=== PATIENT | female | born 1955 | race African-American/Black ===

== ENCOUNTER 2016-08-15 20:21 | Inpatient (IN) | payer BC ==
[~2016-08-15] VITALS: Ht 170.2 cm; Wt 112.0 kg
[~2016-08-15 20:21] MED LIST: ADLT ASA LOW81 MG OR; AMOXICILLIN500 MG PO; AUGMENTIN500TAB PO; AZITHROMYCIN250 MG PO; BACTRIM DS1 TAB PO; BAYER LOW81 MG PO; CEPHALEXIN500 MG PO; CIPRO500 MG OR; CLARITIN10 MG PO; CLINDAMYCIN150 MG PO; CLOTRIM/BETA EX; CORICIDI2 OR; FLEXERIL OR; FLEXERIL PO; FLONASE NASAL50 MCG; FLUARIX QUADRIV1 IN2 IM; FLUARIX QUADRIV1 INJ IM; HYCODAN1 ML OR; KEFLEX250 MG OR; KLOR-CON M2020 MEQ OR; KLOR-CON M2020 MEQ PO; LASIX40 MG OR; LASIX40 MG PO; LIPITOR10 M1 PO; LOPRESS HC100 MG/25 OR; LOPRESSOR PO; LYRICA50 MG PO; LYRICA75 MG PO; Levaquin OR; MEDDOSEPAK PO; METOPROL TAR100 MG PO; METOPROLOL TAR100 MG PO; METOPROLOL100 M1 OR; METOPROLOL25 M1; METOPROLOL50 M1 OR; METOPROLOL50 MG OR; MULTI VITAMN OR; NAPROSYN500 MG OR; NAPROXEN375 MG OR; NEXIUM20 M1 PO; NEXIUM40 M1 OR; PREDNISONE10 MG PO; PREDNISONE20 MG OR; PREDNISONE20 MG PO; PROAIR HFA IN; ROBITUSSIN AC10 ML PO; ROBITUSSIN200 MG/10 PO; ULTRAM50 M1 PO; VICODIN ES1 TAB OR; ZPAK PO; ZYRTEC-D ALG PO; [UNRECOGNIZED DRUG - OTHER] TD; [UNRECOGNIZED DRUG - REMARK]
[2016-08-15 20:51] LABS: HEMATOCRIT 40.7 % (37.0-47.0); MEAN CELL VOLUME 85.3 fL CALC (80.0-100.0); MEAN CORPUSCULAR HGB 27.3 pG CALC (26.0-32.0); MEAN CORPUSCULAR HGB CONC 31.9 g/L CALC (32.0-36.0); NEUT# 3.05 thou/uL (2.00-7.15); RED BLOOD COUNT 4.77 mill/uL (4.20-5.60); RED CELL DISTRI WIDTH 14.3 % (11.5-15.5)
[2016-08-15 21:10] LABS: ALBUMIN 4.6 g/dL (3.2-5.0); ALKALINE PHOSPHATASE 140 u/l (38-126); ANION GAP 15 (6-22 (CALC)); BILIRUBIN, TOTAL 0.4 mg/dL (0.0-1.4); BUN 11 mg/dL (7-17); BUN/CREATININE RATIO 14 (12-20 (CALC)); CALCIUM 8.9 mg/dL (8.4-10.2); CARBON DIOXIDE 26 mmol/l (22-30); CHLORIDE 108 mmol/l (95-108); CREATININE 0.8 mg/dL (0.5-1.0); GFR > 60 ML/MIN (>=60 (CALC)); GFR FOR AFR.AMER. > 60 ML/MIN (>=60 (CALC)); GLUCOSE 91 mg/dL (65-105); POTASSIUM 3.7 mmol/l (3.5-5.1); SGOT/AST 36 u/l (14-36); SGPT/ALT 31 u/l (9-52); SODIUM 146 mmol/l (137-146); TOTAL PROTEIN 8.4 g/dL (6.3-8.2)
[2016-08-15 21:19] LABS: MYOGLOBIN 32 ng/mL (0 - 62)
[2016-08-15 23:43] VITALS: BP 140/77
[2016-08-15 23:45] VITALS: BP 140/77
[2016-08-16] VITALS (22 sets, daily range): BP systolic 93–144; BP diastolic 59–83
[2016-08-16 00:20] LABS: URINE BILIRUBIN - DIPSTICK NEGATIVE (NEGATIVE); URINE BLOOD DIPSTICK TRACE-INTACT (NEGATIVE); URINE CLARITY CLEAR; URINE COLOR YELLOW; URINE GLUCOSE - DIPSTICK NEGATIVE (NEGATIVE); URINE KETONE NEGATIVE (NEGATIVE); URINE LEUK ESTERASE NEGATIVE (NEGATIVE); URINE NITRITE - DIPSTICK NEGATIVE (Negative); URINE PROTEIN - DIPSTICK NEGATIVE (NEG-TRACE); URINE SPECIFIC GRAVITY 1.025
[2016-08-16 04:25] LABS: HEMATOCRIT 37.5 % (37.0-47.0); HEMOGLOBIN 11.8 g/dl (12.0-16.0); IMMATURE GRANULOCYTES 0.2 % (0.0-1.0); MEAN CELL VOLUME 86.8 fL CALC (80.0-100.0); MEAN CORPUSCULAR HGB 27.3 pG CALC (26.0-32.0); MEAN CORPUSCULAR HGB CONC 31.5 g/L CALC (32.0-36.0); NEUT# 2.8 thou/uL (2.00-7.15); RED BLOOD COUNT 4.32 mill/uL (4.20-5.60); RED CELL DISTRI WIDTH 14.4 % (11.5-15.5)
[2016-08-16 04:46] LABS: ALBUMIN 3.8 g/dL (3.2-5.0); ALKALINE PHOSPHATASE 132 u/l (38-126); ANION GAP 12 (6-22 (CALC)); BILIRUBIN, TOTAL 0.5 mg/dL (0.0-1.4); BUN 9 mg/dL (7-17); BUN/CREATININE RATIO 15 (12-20 (CALC)); CALCIUM 8.6 mg/dL (8.4-10.2); CALCULATED LDLCHOLESTEROL 122 mg/dL (62-129 (CALC)); CARBON DIOXIDE 27 mmol/l (22-30); CHLORIDE 109 mmol/l (95-108); CREATININE 0.6 mg/dL (0.5-1.0); GFR > 60 ML/MIN (>=60 (CALC)); GFR FOR AFR.AMER. > 60 ML/MIN (>=60 (CALC)); GLUCOSE 87 mg/dL (65-105); HDL CHOLESTEROL 46 mg/dL (>=40); POTASSIUM 3.9 mmol/l (3.5-5.1); SGOT/AST 27 u/l (14-36); SGPT/ALT 31 u/l (9-52); SODIUM 144 mmol/l (137-146); TOTAL CHOLESTEROL 184 mg/dl (0-199); TOTAL PROTEIN 6.8 g/dL (6.3-8.2); TOTAL TRIGLYCERIDES 79 mg/dl (30-149); VLDL CHOLESTROL 16 mg/dl (1-41 (CALC))
[2016-08-16 05:22] LABS: TSH, 3RD GENERATION 2.41 uIU/mL (0.47 - 4.68)
[2016-08-17] VITALS (7 sets, daily range): BP systolic 99–125; BP diastolic 57–81
== END 2016-08-17 10:20 | disposition home or self-care (01) | DRG 311 ==
LOC: ENPENDDIS → ED 20:21 → ED-I 21:27 → ED 22:48 → ICU 22:49
PROVIDERS: ADMIT Internal Medicine Geriatric Medicine; ATTEND Internal Medicine Geriatric Medicine
DX: I24.9 Acute ischemic heart disease, unspecified (principal); K27.9 Peptic ulcer, site unspecified, unspecified as acute or chronic, without hemorrhage or perforation; I10 Essential (primary) hypertension; I25.10 Atherosclerotic heart disease of native coronary artery without angina pectoris; E78.5 Hyperlipidemia, unspecified; M19.90 Unspecified osteoarthritis, unspecified site; F41.9 Anxiety disorder, unspecified; K21.9 Gastro-esophageal reflux disease without esophagitis; Z98.84 Bariatric surgery status

== ENCOUNTER 2016-12-18 11:06 | Emergency (ER) | payer BC ==
[~2016-12-18] VITALS: Ht 170.2 cm; Wt 80.0 kg
[2016-12-18 11:23] VITALS: BP 180/82
== END 2016-12-18 11:45 | disposition home or self-care (01) | DRG 918 ==
LOC: ED 11:06
DX: T63.464A Toxic effect of venom of wasps, undetermined, initial encounter (principal); I11.0 Hypertensive heart disease with heart failure; I50.9 Heart failure, unspecified; E66.9 Obesity, unspecified; M19.90 Unspecified osteoarthritis, unspecified site; Z98.84 Bariatric surgery status

== ENCOUNTER 2017-01-03 11:01 | Day surgery (SDC) | payer BC ==
[~2017-01-03] VITALS: Ht 170.2 cm; Wt 111.1 kg
[~2017-01-03 11:01] MED LIST changes: +PROAIR HFA108 MCG/AC IN
[2017-01-03 15:53] VITALS: BP 127/91
== END 2017-01-03 15:48 | disposition home or self-care (01) | DRG 951 ==
LOC: ENDO 11:01 → ORM 12:15 → ENDO 12:30 → ORM 12:45 → ENDO 13:15
PROVIDERS: ATTEND Internal Medicine Gastroenterology
PROC: 0DBK8ZX Excision of Ascending Colon, Via Natural or Artificial Opening Endoscopic, Diagnostic (ICD-10-PCS; principal; 2017-01-03)
PROC: 0DBL8ZX Excision of Transverse Colon, Via Natural or Artificial Opening Endoscopic, Diagnostic (ICD-10-PCS; 2017-01-03)
PROC: 0DBN8ZX Excision of Sigmoid Colon, Via Natural or Artificial Opening Endoscopic, Diagnostic (ICD-10-PCS; 2017-01-03)
DX: Z12.11 Encounter for screening for malignant neoplasm of colon (principal); I11.0 Hypertensive heart disease with heart failure; I50.9 Heart failure, unspecified; D12.2 Benign neoplasm of ascending colon; D12.5 Benign neoplasm of sigmoid colon; D12.3 Benign neoplasm of transverse colon; K64.4 Residual hemorrhoidal skin tags; K64.8 Other hemorrhoids; K59.04 Chronic idiopathic constipation; R13.10 Dysphagia, unspecified; K21.9 Gastro-esophageal reflux disease without esophagitis; E78.00 Pure hypercholesterolemia, unspecified; J45.909 Unspecified asthma, uncomplicated; Z98.84 Bariatric surgery status; Z79.899 Other long term (current) drug therapy

== ENCOUNTER 2017-02-07 06:56 | Day surgery (SDC) | payer BC ==
[~2017-02-07] VITALS: Ht 170.2 cm; Wt 108.9 kg
[~2017-02-07 06:56] MED LIST changes: +FLONASE AL50 MCG/ACT NAB
[2017-02-07 09:10] VITALS: BP 98/53
== END 2017-02-07 09:37 | disposition home or self-care (01) | DRG 392 ==
LOC: ENDO 06:56 → ORM 11:00 → ENDO 11:45
PROVIDERS: ATTEND Internal Medicine Gastroenterology
PROC: 0DB48ZX Excision of Esophagogastric Junction, Via Natural or Artificial Opening Endoscopic, Diagnostic (ICD-10-PCS; principal; 2017-02-07)
DX: R13.10 Dysphagia, unspecified (principal); K29.50 Unspecified chronic gastritis without bleeding; Q39.8 Other congenital malformations of esophagus; K21.9 Gastro-esophageal reflux disease without esophagitis; I11.0 Hypertensive heart disease with heart failure; I50.9 Heart failure, unspecified; E78.00 Pure hypercholesterolemia, unspecified; K64.4 Residual hemorrhoidal skin tags; K59.00 Constipation, unspecified; J45.909 Unspecified asthma, uncomplicated; Z86.010 Personal history of colon polyps; Z98.84 Bariatric surgery status

== ENCOUNTER 2017-04-28 09:34 | Emergency (ER) | payer BC ==
[~2017-04-28] VITALS: Ht 170.2 cm; Wt 100.0 kg
[2017-04-28 10:35] LABS: INFLUENZA A NONE DETECTED (NONE DETECT); INFLUENZA B NONE DETECTED (NONE DETECT)
[2017-04-28] MEDS ORDERED: AFRIN 12 HOUR0.05 % (10:38)
[2017-04-28] MEDS ORDERED: TESSALON PER100 MG PO (10:38)
[2017-04-28] MEDS ORDERED: ZITHROMAX250 MG PO (10:38)
[2017-04-28 10:44] VITALS: BP 144/78
== END 2017-04-28 10:44 | disposition home or self-care (01) | DRG 153 ==
LOC: ED 09:34
PROVIDERS: Emergency Medicine
DX: J06.9 Acute upper respiratory infection, unspecified (principal); R05 Cough; R09.81 Nasal congestion; R09.89 Other specified symptoms and signs involving the circulatory and respiratory systems

== ENCOUNTER 2018-01-24 17:32 | Emergency (ER) | payer BC ==
[~2018-01-24] VITALS: Ht 170.2 cm; Wt 113.4 kg
[~2018-01-24 17:32] MED LIST changes: +AFRIN 12 HOUR0.05 %; +TESSALON PER100 MG PO; +ZITHROMAX250 MG PO
[2018-01-24] MEDS ORDERED: AMANTADINE100 MG PO (17:44)
[2018-01-24] MEDS ORDERED: AMOXICILLIN500 MG PO (17:45)
[2018-01-24 18:57] LABS: HEMATOCRIT 38.7 % (37.0-47.0); HEMOGLOBIN 12.2 g/dl (12.0-16.0); MEAN CELL VOLUME 87.6 fL CALC (80.0-100.0); MEAN CORPUSCULAR HGB 27.6 pG CALC (26.0-32.0); MEAN CORPUSCULAR HGB CONC 31.5 g/L CALC (32.0-36.0); NEUT# 1.64 thou/uL (2.00-7.15); RED BLOOD COUNT 4.42 mill/uL (4.20-5.60); RED CELL DISTRI WIDTH 14.7 % (11.5-15.5)
[2018-01-24 19:10] LABS: INFLUENZA A NONE DETECTED (NONE DETECT); INFLUENZA B NONE DETECTED (NONE DETECT)
[2018-01-24 19:17] LABS: ALBUMIN 3.7 g/dL (3.2-5.0); ALKALINE PHOSPHATASE 134 u/l (38-126); ANION GAP 12 (6-22 (CALC)); BILIRUBIN, TOTAL 0.2 mg/dL (0.0-1.4); BUN 10 mg/dL (8-23); BUN/CREATININE RATIO 13 (12-20 (CALC)); CARBON DIOXIDE 28 mmol/l (22-30); CHLORIDE 105 mmol/l (95-108); CREATININE 0.8 mg/dL (0.5-1.0); GFR > 60 ML/MIN (>=60 (CALC)); GFR FOR AFR.AMER. > 60 ML/MIN (>=60 (CALC)); SGOT/AST 24 u/l (9-36); SODIUM 141 mmol/l (137-146)
[2018-01-24] MEDS ORDERED: CODEINE/GUAIFEN1 SOL PO (19:22)
[2018-01-24] MEDS ORDERED: PROVENTIL HFA IN (19:22)
[2018-01-24 19:31] VITALS: BP 140/90
== END 2018-01-24 19:40 | disposition home or self-care (01) | DRG 203 ==
LOC: ED 17:32
PROVIDERS: Emergency Medicine
DX: J40 Bronchitis, not specified as acute or chronic (principal); I10 Essential (primary) hypertension; E78.5 Hyperlipidemia, unspecified

== ENCOUNTER 2018-02-09 17:20 | Observation (INO) | payer BC ==
[~2018-02-09] VITALS: Ht 170.2 cm; Wt 109.0 kg
[~2018-02-09 17:20] MED LIST changes: +AMANTADINE100 MG PO; +CODEINE/GUAIFEN1 SOL PO; +PROVENTIL HFA IN
[2018-02-09 17:25] VITALS: BP 171/104
--- NOTE | 2018-02-09 17:45 | NUR ---
PT ARRIVED DIRECT ADMIT FROM DR MORALES OFFICE. REVIEWED PLAN OF CARE TO BE SETTLED IN TO BED AND IV STARTED. PT SL SHORT OF BREATH WITH EXERTION, 02 SATS 98% ON ROOM AIR. PT TOLERATED IV START WELL. TELEVISION ENGINEERING TEACHER AT BEDSIDE TO ASSIST PT. DENIES ANY FURTHER NEEDS AT THIS TIME. CALL LIGHT WITHIN REACH, ORIENTED TO ROOM.
--- NOTE | 2018-02-09 17:50 | NUR ---
DR GUERRA IN TO SAY HI TO PT.
[2018-02-09 18:17] LABS: HEMATOCRIT 39.7 % (37.0-47.0); HEMOGLOBIN 12.8 g/dl (12.0-16.0); IMMATURE GRANULOCYTES 0.2 % (0.0-5.0); MEAN CELL VOLUME 86.5 fL CALC (80.0-100.0); MEAN CORPUSCULAR HGB 27.9 pG CALC (26.0-32.0); MEAN CORPUSCULAR HGB CONC 32.2 g/L CALC (32.0-36.0); NEUT# 4.54 thou/uL (2.00-7.15); RED BLOOD COUNT 4.59 mill/uL (4.20-5.60); RED CELL DISTRI WIDTH 14.6 % (11.5-15.5)
[2018-02-09 18:43] LABS: ANION GAP 12 (6-22 (CALC)); BUN 11 mg/dL (8-23); BUN/CREATININE RATIO 18 (12-20 (CALC)); CARBON DIOXIDE 27 mmol/l (22-30); CHLORIDE 105 mmol/l (95-108); CREATININE 0.6 mg/dL (0.5-1.0); GFR > 60 ML/MIN (>=60 (CALC)); GFR FOR AFR.AMER. > 60 ML/MIN (>=60 (CALC)); POTASSIUM 4.1 mmol/l (3.5-5.1); SODIUM 140 mmol/l (137-146)
--- NOTE | 2018-02-09 19:20 | NUR ---
BEDSIDE REPORT RECEIVED FROM MORGAN ESTEBAN. PT SITTING UP IN BED WITH AT BEDSIDE; ALERT AND ORIENTED. AMBULATED TO BATHROOM WITH SBA; SOB ON EXERTION AND PT REQUESTED BSC. DENIES PAIN CURRENTLY, BUT REPORTS DISCOMFORT IN HER CHEST FROM COUGHING AND ILLNESS. HUMIDIFIED OXYGEN APPLIED AT 2L VIA NC; REPSIRATIONS EVEN AND UNLABORED AT REST. LUNGS ARE CLEAR. PLAN OF CARE DISCUSSED. PT ENCOURAGED TO VERBALIZE CONCERNS. STATES UNDERSTANDING. SAFETY MEASURES IN PLACE. CALL LIGHT WITHIN REACH.
[2018-02-09 19:50] VITALS: BP 145/90
--- NOTE | 2018-02-09 20:30 | NUR ---
ROCEPHIN INFUSING AT THIS TIME; IV FLUIDS MAINTAINING WITHOUT DIFFICULTY; IV SITE TO RIGHT HAND APPEARS HEALTHY; MESH NETTING APPLIED FOR COMFORT. MED REC COMPLETED AND INHALER GIVEN PER SCHEDULE. NO REQUESTS AT THIS TIME.
--- NOTE | 2018-02-09 23:00 | NUR ---
PT BACK FROM XRAY VIA WHEELCHAIR WITH MS STAFF IN STABLE CONDITION. ONLY REQUEST IS FOR APPLE JUICE.
--- NOTE | 2018-02-10 01:11 | NUR ---
PT AWAKE AND WATCHING TV; REMAINS AT BEDSIDE. IV FLUIDS INFUSING WITHOUT DIFFICULTY; IV SITE APPEARS HEALTHY. SOLUMEDROL ADMINSITERED. PT SBA TO BSC. SAFETY MEASURES IN PLACE. CALL LIGHT WITHIN REACH.
[2018-02-10 04:30] VITALS: BP 122/82
--- NOTE | 2018-02-10 04:35 | NUR ---
PT ASLEEP AT THIS TIME WITH NO SIGNS OF DISTRESS. RESPIRATIONS EVEN AND UNLABORED ON OXYGEN. NO ACUTE CHANGES IN CONDITION THROUGHOUT THE NIGHT. SAFETY MEASURES IN PLACE. CALL LIGHT WITHIN REACH.
[2018-02-10 05:11] LABS: HEMATOCRIT 39.2 % (37.0-47.0); HEMOGLOBIN 12.6 g/dl (12.0-16.0); IMMATURE GRANULOCYTES 0.4 % (0.0-5.0); MEAN CELL VOLUME 86.9 fL CALC (80.0-100.0); MEAN CORPUSCULAR HGB 27.9 pG CALC (26.0-32.0); MEAN CORPUSCULAR HGB CONC 32.1 g/L CALC (32.0-36.0); NEUT# 6.55 thou/uL (2.00-7.15); RED BLOOD COUNT 4.51 mill/uL (4.20-5.60); RED CELL DISTRI WIDTH 14.6 % (11.5-15.5)
[2018-02-10 05:39] LABS: ALBUMIN 3.9 g/dL (3.2-5.0); ALKALINE PHOSPHATASE 137 u/l (38-126); ANION GAP 14 (6-22 (CALC)); BILIRUBIN, TOTAL 0.3 mg/dL (0.0-1.4); BUN 9 mg/dL (8-23); BUN/CREATININE RATIO 16 (12-20 (CALC)); CALCULATED LDLCHOLESTEROL 106 mg/dL (62-129 (CALC)); CARBON DIOXIDE 26 mmol/l (22-30); CHLORIDE 105 mmol/l (95-108); CHOLESTEROL HDL RATIO 3.1 (<4.4 (CALC)); CREATININE 0.6 mg/dL (0.5-1.0); GFR > 60 ML/MIN (>=60 (CALC)); GFR FOR AFR.AMER. > 60 ML/MIN (>=60 (CALC)); HDL CHOLESTEROL 56 mg/dL (>=40); POTASSIUM 4.9 mmol/l (3.5-5.1); SGOT/AST 19 u/l (9-36); SODIUM 140 mmol/l (137-146); TOTAL CHOLESTEROL 175 mg/dl (0-199); TOTAL PROTEIN 7.2 g/dL (6.3-8.2); TOTAL TRIGLYCERIDES 66 mg/dl (30-149); VLDL CHOLESTROL 13 mg/dl (1-41 (CALC))
--- NOTE | 2018-02-10 07:57 | NUR ---
DR GUERRA AT BEDSIDE TO DISCUSS POC
[2018-02-10 08:09] VITALS: BP 151/88
--- NOTE | 2018-02-10 08:09 | NUR ---
ASSESSMENT COMPLETED; PT SITTING UP IN BED EATHING BREAKFAST; RESP EVEN AND UNLABORE; SPEECH CLEAR; TELE IN PLACE; IV PATENT; ACTIVE BOWEL SOUNDS; TRACE EDEMA NOTED TO BLE ANKLES; CALL HAZEL IN REACH;
--- NOTE | 2018-02-10 09:36 | NUR ---
904- PT. C/O CHEST PAIN/SORENESS /10 AFTER A COUGHING SPELL; VS OBTAINED AND B/P ELEVATED AT 187/87 AND HR 110; PT. DID JUST GET OOB TO USE THE BSC WELL. 914- NOTIFIED DR. GUERRA OF THE ABOVE NOTE WELL PT. HAVING SCHEDULED LOPRESSOR; NEW ORDERS RECIEVED AT THIS TIME AND TO BE CARRIED OUT. AWAITING PHARMACY TO SCHEDULE CLONIDINE AT THIS TIME FOR ADMINISTRATION. NOTIFIED RT FOR STAT EKG. 935-ADMINISTERED CLONIDINE PER ORDER; WILL REASSESS IN 45 MINUTES PER ORDER; PT. REPORTS PAIN HAS COME DOWN SOME AT THIS TIME. ALSO MEDICATED WITH PRN ATIVAN TO ASSIST PT. TO RELAX; WILL REASSESS. CALL LIGHT IS IN REACH. WILL CONTINUE TO MONITOR.
--- NOTE | 2018-02-10 09:55 | NUR ---
VOICEMAIL LEFT ON CELL FOR DR. GUERRA TO NOTIFY HIM OF EKG BEING SCANNED AT THIS TIME FOR HIM TO EVALUATE.
[2018-02-10 10:07] LABS: URINE BILIRUBIN - DIPSTICK NEGATIVE (NEGATIVE); URINE BLOOD DIPSTICK TRACE-LYSED (NEGATIVE); URINE COLOR YELLOW; URINE GLUCOSE - DIPSTICK 250 mg/dL (NEGATIVE); URINE KETONE NEGATIVE (NEGATIVE); URINE LEUK ESTERASE NEGATIVE (NEGATIVE); URINE NITRITE - DIPSTICK NEGATIVE (Negative); URINE PROTEIN - DIPSTICK NEGATIVE (NEG-TRACE); URINE SPECIFIC GRAVITY <=1.005; URINE UROBILINOGEN - DIPSTICK 0.2 E.U./dL (0.2)
[2018-02-10 10:08] LABS: URINE CLARITY CLEAR
--- NOTE | 2018-02-10 10:25 | NUR ---
SPOKE WITH DR. GUERRA AND NOTIFIED HIM OF EKG BEING SCANNED IN AND THAT PER RT READS ST. ALSO NOTIFIED HIM THAT PT. REPORTS CP HAS EASED OFF SOME BUT STILL IS A 2-3 AND DOES REPORT HX; GERD AND THAT SHE WAS GIVEN PROTONIX WELL. UPDATED ON REASSESSED B/P 120/68 AND OF HR 89; MD [place] WITH ADMINISTRATION OF 0900 LOPRESSOR; WILL MEDICATE PER ORDER. NEW ORDERS RECEIVED AND TO BE CARRIED OUT.
--- NOTE | 2018-02-10 11:15 | NUR ---
PT LAYING IN BED AWAKE, TELE IN PLACE; PT ASKED FOR APPLE JUICE WHICH WAS GIVEN; PT VOICED NO OTHER NEEDS; RESP EVEN AND UNLABOERD; WILL CONTINUE TO MONITOR.
--- NOTE | 2018-02-10 11:19 | NUR ---
NOTIFIED DR. GUERRA OF TROPONIN LEVEL AND TELEMETRY READING. ALSO THAT PT. STILL REPORTS CHEST SORENESS/PAIN REMAINS AT 2-3; NO CHANGE; NEW ORDERS FOR TRAMADOL AND TO CARRY OUT.
--- NOTE | 2018-02-10 11:45 | NUR ---
PT. C/O PAIN 04/19 NOW IT HAS DECREASED AND PT. IS BURPING; MEDICATED WITH ORDERED TRAMADOL; WILL REASSESS. EDUCATED PT. ON TRAMADOL FREQUENCY; VERBALIZES UNDERSTANDING; DENIES FURTHER NEEDS. UPDATED ON POC. CALL LIGHT IS IN REACH.
--- NOTE | 2018-02-10 13:22 | NUR ---
PT. SET UP FOR BATH UP TO CHAIR; BATHED SELF. LINENS CHANGED. PT. DID GET SLIGHTLY SHORT OF BREATH WITH THIS EXERTION. ASSISTED TO GET BACK INTO BED; DENIES FURTHER NEEDS. CALL LIGHT IS IN REACH.
--- NOTE | 2018-02-10 15:36 | NUR ---
PT LAYING IN BED AWAKE AND WATCHING TV; PT INDIPENDENT IN ROOM; NO S/S OF DISTRESS NOTED; BSC REMAINS CLOSE TO BED FOR PT USE;
[2018-02-10 15:52] VITALS: BP 102/59
--- NOTE | 2018-02-10 19:00 | NUR ---
RECEIVED REPORT FROM DAY NURSE. AT BESIDE. NO S/S OF DISTRESS NOTED. CALL HAZEL IN REACH. WILL CONTINUE TO MONITOR.
[2018-02-10 19:32] VITALS: BP 142/63
--- NOTE | 2018-02-11 | NUR ---
PT RESTING IN BED. AT BEDSIDE. IV INFUSING WELL. NO S/S OF DISTRESS. CALL HAZEL IN REACH. WILL CONTINUE TO MONITOR.
[2018-02-11 00:14] VITALS: BP 120/61
--- NOTE | 2018-02-11 02:59 | NUR ---
PT RESTING IN BED. AT BEDSIDE.ASSESSMENT COMPLETED AT THIS TIME(SEE INTERVENTIONS) LUNG SOUNDS CLEAR, HEART SOUNDS NORMAL, BOWEL SOUNDS ACTIVE. TRACE EDEMA NOTED TO LEGS BILATERALLY. #22 IN THE RIGHT HAND INFUSING WELL, NO REDNESS OR EDEMA NOTED. PT VOICING NO COMPLAINTS AT THIS TIME. CALL HAZEL IN REACH. WILL CONTINUE TO MONITOR.
--- NOTE | 2018-02-11 04:00 | NUR ---
PT RESTING IN BED WITH EYES CLOSED. NO S/S OF DISTRESS NOTED.CALL HAZEL IN REACH. WILL CONTINUE TO MOMITOR.
[2018-02-11 04:20] VITALS: BP 124/75
[2018-02-11 05:58] LABS: HEMATOCRIT 36.6 % (37.0-47.0); HEMOGLOBIN 11.7 g/dl (12.0-16.0); IMMATURE GRANULOCYTES 0.5 % (0.0-5.0); MEAN CELL VOLUME 86.9 fL CALC (80.0-100.0); MEAN CORPUSCULAR HGB 27.8 pG CALC (26.0-32.0); NEUT# 15.25 thou/uL (2.00-7.15); RED BLOOD COUNT 4.21 mill/uL (4.20-5.60)
[2018-02-11 06:17] LABS: ANION GAP 13 (6-22 (CALC)); BUN 11 mg/dL (8-23); BUN/CREATININE RATIO 19 (12-20 (CALC)); CARBON DIOXIDE 25 mmol/l (22-30); CHLORIDE 107 mmol/l (95-108); CREATININE 0.6 mg/dL (0.5-1.0); GFR > 60 ML/MIN (>=60 (CALC)); GFR FOR AFR.AMER. > 60 ML/MIN (>=60 (CALC)); POTASSIUM 4.5 mmol/l (3.5-5.1); SODIUM 140 mmol/l (137-146)
[2018-02-11 07:40] VITALS: BP 142/59
--- NOTE | 2018-02-11 07:43 | NUR ---
ASSESSMENT COMPLETED; PT SITTING UP IN BED AWAKE, ALERT; COMPLAIN OF HEADACHE 10/17; RESP EVEN AND UNLABORED; NO ACUTE DISTRESS NOTED; IVF D5 1/2 @100CC/HR; 02 2L NC; TELE IN PLACE; MEDICATED PER EMAR; WILL CONTINUE TO MONITOR.
[2018-02-11 07:45] VITALS: BP 142/59
--- NOTE | 2018-02-11 08:17 | NUR ---
DR GUERRA AT BEDSIDE TO DISCUSS POC
[2018-02-11] MEDS ORDERED: LEVAQUIN750 MG PO (08:37)
[2018-02-11] MEDS ORDERED: MEDDOSEPAK PO (08:37)
--- NOTE | 2018-02-11 09:00 | NUR ---
D/C INSTRUCTIONS GIVEN AT THIS TIME; VERBALIZES UNDERSTANDING. IV SITE REMOVED TO RIGHT HAND; CATH TIP INTACT. PT. STABLE. DENIES ANY QUESTIONS AT THIS TIME.
--- NOTE | 2018-02-11 09:09 | NUR ---
PT. DOWN VIA W/C ACCOMPANIED BY SLOPE HOIST OPERATOR; PT. STABLE.
== END 2018-02-11 09:09 | disposition home or self-care (01) | DRG 203 ==
LOC: MS2 17:20
PROVIDERS: ADMIT Internal Medicine Geriatric Medicine; ATTEND Internal Medicine Geriatric Medicine
DX: J40 Bronchitis, not specified as acute or chronic (principal); I10 Essential (primary) hypertension; E78.5 Hyperlipidemia, unspecified; I25.10 Atherosclerotic heart disease of native coronary artery without angina pectoris; F41.9 Anxiety disorder, unspecified; M19.90 Unspecified osteoarthritis, unspecified site; K21.9 Gastro-esophageal reflux disease without esophagitis; K27.9 Peptic ulcer, site unspecified, unspecified as acute or chronic, without hemorrhage or perforation
CPT/HCPCS: G0378; G0379

== ENCOUNTER 2018-02-12 12:08 | Observation (INO) | payer BC ==
[~2018-02-12] VITALS: Ht 170.2 cm; Wt 111.6 kg
[~2018-02-12 12:08] MED LIST changes: +LEVAQUIN750 MG PO
--- NOTE | 2018-02-12 12:23 | NUR ---
PATIENT TO ROOM VIA WHEELCHAIR AND PHYSICIAN AT BEDSIDE FOR EVAL
[2018-02-12 12:40] LABS: HEMOGLOBIN 12.1 g/dl (12.0-16.0); IMMATURE GRANULOCYTES 0.4 % (0.0-5.0); MEAN CELL VOLUME 86.8 fL CALC (80.0-100.0); MEAN CORPUSCULAR HGB 27.6 pG CALC (26.0-32.0); MEAN CORPUSCULAR HGB CONC 31.8 g/L CALC (32.0-36.0); NEUT# 10.64 thou/uL (2.00-7.15); RED BLOOD COUNT 4.38 mill/uL (4.20-5.60); RED CELL DISTRI WIDTH 15.2 % (11.5-15.5)
--- NOTE | 2018-02-12 12:48 | NUR ---
PT RESTING QUIETLY ON STRETCHER, NO DISTRESS NOTED. SATS 100%, RESPIRATIONS 18, PT TALKING AND LAUGHING WITH FAMILY AT BEDSIDE.
[2018-02-12 12:56] LABS: ALBUMIN 3.8 g/dL (3.2-5.0); ALKALINE PHOSPHATASE 119 u/l (38-126); ANION GAP 13 (6-22 (CALC)); BILIRUBIN, TOTAL 0.3 mg/dL (0.0-1.4); BUN 19 mg/dL (8-23); BUN/CREATININE RATIO 25 (12-20 (CALC)); CARBON DIOXIDE 28 mmol/l (22-30); CHLORIDE 106 mmol/l (95-108); CREATININE 0.8 mg/dL (0.5-1.0); GFR > 60 ML/MIN (>=60 (CALC)); GFR FOR AFR.AMER. > 60 ML/MIN (>=60 (CALC)); LIPASE 67 u/l (23-300); POTASSIUM 3.9 mmol/l (3.5-5.1); SODIUM 143 mmol/l (137-146); TOTAL PROTEIN 7.4 g/dL (6.3-8.2)
[2018-02-12 12:59] LABS: SGOT/AST 37 u/l (9-36)
--- NOTE | 2018-02-12 14:15 | NUR ---
PT VITAL SIGNS REMAIN STABLE, NO AUDIBLE WHEEZING NOTED. SATS REMAIN 100%, NO COUGHING NOTED. PT UP TO BATHROOM
--- NOTE | 2018-02-12 14:37 | NUR ---
PT STATES SHE IS NOW HAVING CHEST PAIN, DR. SALAS NOTIFIED AND CALLED DR. GUERRA BACK. PT IS TO BE ADMITTED NOW
--- NOTE | 2018-02-12 15:06 | NUR ---
PT UP TO BATHROOM, NO DISTRESS NOTED. SATS REMAINED THE SAME 99-100
--- NOTE | 2018-02-12 15:43 | NUR ---
DR. GUERRA CALLED FOR ORDERS
--- NOTE | 2018-02-12 15:50 | NUR ---
TRIED TO CALL NURSE REPORT AND NURSE IS BUSY AT THIS TIME
--- NOTE | 2018-02-12 16:03 | NUR ---
REPORT GIVEN, PT TAKEN TO MED SURG PER W/C
[2018-02-12 16:21] VITALS: BP 166/56
--- NOTE | 2018-02-12 16:27 | NUR ---
[place] [facility] [facility] [place]OMPIAN[place] BY MORGAN BURNS AND FAMILY @[id number]. PT AMBULATED W/ STEADY GAIT FROM WC TO BED. VS DONE. ASSESSMENT COMPLETED. PT A/O X3. SPEECH IS CLEAR. PERRLA. RESP EVEN AND UNLABORED. LUNG SOUNDS CLEAR. PT C/O CHEST TIGHTNESS. 6 OUT OF 10 ON PAIN SCALE. RELAXATION TECHNIQUES IN PLACE. BOWEL SOUNDS ACTIVE X4. STRONG RADIAL AND PEDAL PULSES. #20 RFA SL. FLUSHED AND PATENT. SITE APPEARS HEALTHY. SKIN INTACT. PT DENIES ANY FURTHER NEEDS. POC DISCUSSED. SAFETY PRECAUTIONS IN PLACE. CALL LIGHT IN REACH. WILL CONTINUE TO MONITOR.
--- NOTE | 2018-02-12 17:45 | NUR ---
PT RESTING IN BED. PT DENIES CHEST PAIN BUT DOES STATE SHE HAS SLIGHT CHEST PRESSURE. RESP EVEN AND UNLABORED. TELE IN PLACE. LIGHTS DIMMED FOR COMFORT SO PT WILL BE ABLE TO REST. CALL LIGHT IN REACH. WILL CONTINUE TO MONITOR
[2018-02-12 18:26] VITALS: BP 151/82
--- NOTE | 2018-02-12 19:20 | NUR ---
BEDSIDE REPORT RECEIVED FROM RICHARD COOPER. PT RESTING IN BED ON RIGHT SIDE; ALERT AND ORIENTED. DENIES PAIN, BUT C/O MODERATE CHEST PRESSURE TO LUQ JUST UNDER LEFT BREAST. RESPIRATIONS EVEN AND UNLABORED ON ROOM AIR. PLAN OF CARE REVIEWED. PT ENCOURAGED TO VERBALIZE CONCERNS. STATES UNDERSTANDING. SAFETY MEASURES IN PLACE. CALL LIGHT WITHIN REACH.
[2018-02-12 20:00] VITALS: BP 153/88
[2018-02-13] VITALS: BP 138/77
--- NOTE | 2018-02-13 | NUR ---
PT ASLEEP AT THIS TIME WITH NO SIGNS OF DISTRESS. RESPIRATIONS EVEN AND UNLABORED ON ROOM AIR. ATIVAN GIVEN AT HS WITH GOOD EFFECT. IV FLUIDS INFUSING WITHOUT DIFFICULY; IV SITE APPEARS HEALTHY. INDEPENDENT IN ROOM. CALL LIGHT WITHIN REACH.
--- NOTE | 2018-02-13 03:33 | NUR ---
TYLENOL GIVEN FOR 710 HEADACHE.
--- NOTE | 2018-02-13 04:31 | NUR ---
PT ASLEEP AT THIS TIME WITH NO SIGNS OF DISTRESS. RESPIRATIONS EVEN AND UNLABORED ON ROOM AIR. NO ACUTE CHANGES IN CONDITION THROUGHOUT THE NIGHT. SAFETY MEASURES IN PLACE. CALL LIGHT WITHIN REACH.
[2018-02-13 05:07] LABS: ALBUMIN 3.7 g/dL (3.2-5.0); ALKALINE PHOSPHATASE 114 u/l (38-126); ANION GAP 12 (6-22 (CALC)); BILIRUBIN, TOTAL 0.6 mg/dL (0.0-1.4); BUN 13 mg/dL (8-23); BUN/CREATININE RATIO 18 (12-20 (CALC)); CALCULATED LDLCHOLESTEROL 71 mg/dL (62-129 (CALC)); CARBON DIOXIDE 31 mmol/l (22-30); CHLORIDE 101 mmol/l (95-108); CHOLESTEROL HDL RATIO 2.8 (<4.4 (CALC)); CREATININE 0.7 mg/dL (0.5-1.0); GFR > 60 ML/MIN (>=60 (CALC)); GFR FOR AFR.AMER. > 60 ML/MIN (>=60 (CALC)); HDL CHOLESTEROL 52 mg/dL (>=40); HEMATOCRIT 38.5 % (37.0-47.0); HEMOGLOBIN 12.3 g/dl (12.0-16.0); IMMATURE GRANULOCYTES 0.3 % (0.0-5.0); MEAN CELL VOLUME 87.1 fL CALC (80.0-100.0); MEAN CORPUSCULAR HGB 27.8 pG CALC (26.0-32.0); MEAN CORPUSCULAR HGB CONC 31.9 g/L CALC (32.0-36.0); NEUT# 5.05 thou/uL (2.00-7.15); POTASSIUM 3.8 mmol/l (3.5-5.1); RED BLOOD COUNT 4.42 mill/uL (4.20-5.60); RED CELL DISTRI WIDTH 15.1 % (11.5-15.5); SGOT/AST 27 u/l (9-36); SODIUM 140 mmol/l (137-146); TOTAL CHOLESTEROL 146 mg/dl (0-199); TOTAL PROTEIN 6.8 g/dL (6.3-8.2); TOTAL TRIGLYCERIDES 119 mg/dl (30-149); VLDL CHOLESTROL 24 mg/dl (1-41 (CALC))
[2018-02-13 05:08] VITALS: BP 135/87
[2018-02-13 07:45] VITALS: BP 117/77
--- NOTE | 2018-02-13 07:45 | NUR ---
ASSESSMENT IS COMPLETED: IV SITE IS FREE FROM REDNESS OR EDEMA. HR IS REG,PULSES ARE STRONG X4, ABD IS SOFT WITH ACTIVE BS, BREATH SOUNDS ARE CLEAR, BILATERALLY. TELE MONITOR IN PLACE. CONTINUE TO OBSERVE AND MONITOR.
[2018-02-13] MEDS ORDERED: CARAFATE1 GM PO (08:42)
[2018-02-13] MEDS ORDERED: NEXIUM20 MG PO (08:42)
[2018-02-13 09:07] VITALS: BP 117/77
[2018-02-13 10:15] LABS: URINE BILIRUBIN - DIPSTICK NEGATIVE (NEGATIVE); URINE BLOOD DIPSTICK NEGATIVE (NEGATIVE); URINE COLOR YELLOW; URINE GLUCOSE - DIPSTICK NEGATIVE (NEGATIVE); URINE KETONE NEGATIVE (NEGATIVE); URINE LEUK ESTERASE NEGATIVE (Negative); URINE NITRITE - DIPSTICK NEGATIVE (Negative); URINE PROTEIN - DIPSTICK NEGATIVE (NEG-TRACE); URINE SPECIFIC GRAVITY 1.015; URINE UROBILINOGEN - DIPSTICK 0.2 E.U./dL (0.2)
[2018-02-13 10:16] LABS: URINE CLARITY CLEAR
--- NOTE | 2018-02-13 11:11 | NUR ---
PT TRANSPORTED TO HER PERSONAL VEHICLE. IV SITE DISCONTINUED CATHETR INTACT. DISCHARGE INSTRUCTIONS GIVEN AND VERBALIZED UNDERSTANDING. Discharge instructions given. Patient verbalizes understanding of same. Discharged in stable condition via Wheelchair to Home with family. All belongings sent with pt.
== END 2018-02-13 11:08 | disposition home or self-care (01) | DRG 313 ==
LOC: ED 12:08 → ED-I 14:10 → ED 14:56 → MS2 14:57
PROVIDERS: Emergency Medicine; ADMIT Internal Medicine Geriatric Medicine; ATTEND Internal Medicine Geriatric Medicine
DX: R07.9 Chest pain, unspecified (principal); F11.20 Opioid dependence, uncomplicated; I10 Essential (primary) hypertension; I25.10 Atherosclerotic heart disease of native coronary artery without angina pectoris; J44.9 Chronic obstructive pulmonary disease, unspecified; E78.5 Hyperlipidemia, unspecified; F41.1 Generalized anxiety disorder; K21.9 Gastro-esophageal reflux disease without esophagitis; K27.9 Peptic ulcer, site unspecified, unspecified as acute or chronic, without hemorrhage or perforation; G89.29 Other chronic pain; M19.90 Unspecified osteoarthritis, unspecified site; Z98.84 Bariatric surgery status
CPT/HCPCS: G0378; Q9967; S0164

== ENCOUNTER 2019-02-28 08:46 | Emergency (ER) | payer BC ==
[~2019-02-28] VITALS: Ht 170.2 cm; Wt 100.0 kg
[~2019-02-28 08:46] MED LIST changes: +CARAFATE1 GM PO; +NEXIUM20 MG PO
[2019-02-28] MEDS ORDERED: CHERATUSSIN PO (08:59)
[2019-02-28] MEDS ORDERED: DOXYCYC MONO100 M2 PO (08:59)
[2019-02-28] MEDS ORDERED: PROAIR HFA108 MCG/AC PO (08:59)
[2019-02-28 09:13] VITALS: BP 137/82
== END 2019-02-28 09:21 | disposition home or self-care (01) | DRG 153 ==
LOC: ED 08:46
DX: J06.9 Acute upper respiratory infection, unspecified (principal); I11.0 Hypertensive heart disease with heart failure; I50.9 Heart failure, unspecified

== ENCOUNTER 2019-04-27 | Emergency (ER) | payer BC ==
[~2019-04-27] MED LIST changes: +CHERATUSSIN PO; +DOXYCYC MONO100 M2 PO; +PROAIR HFA108 MCG/AC PO
--- NOTE | 2019-04-27 20:15 | NUR ---
BREATHING TREATMENT GIVEN.
[2019-04-27 21:08] LABS: HEMATOCRIT 37.3 % (37.0-47.0); HEMOGLOBIN 11.7 g/dl (12.0-16.0); IMMATURE GRANULOCYTES 0.2 % (0.0-5.0); MEAN CELL VOLUME 86.5 fL CALC (80.0-100.0); MEAN CORPUSCULAR HGB 27.1 pG CALC (26.0-32.0); MEAN CORPUSCULAR HGB CONC 31.4 g/L CALC (32.0-36.0); NEUT# 4.26 thou/uL (2.00-7.15); RED BLOOD COUNT 4.31 mill/uL (4.20-5.60); RED CELL DISTRI WIDTH 14.8 % (11.5-15.5)
[2019-04-27 21:26] LABS: ALBUMIN 4.2 g/dL (3.2-5.0); ALKALINE PHOSPHATASE 134 u/l (38-126); ANION GAP 11 (6-22 (CALC)); BILIRUBIN, TOTAL 0.3 mg/dL (0.0-1.4); BUN 12 mg/dL (8-23); BUN/CREATININE RATIO 16 (12-20 (CALC)); CARBON DIOXIDE 26 mmol/l (22-30); CHLORIDE 108 mmol/l (95-108); CREATININE 0.7 mg/dL (0.5-1.0); GFR > 60 ML/MIN (>=60 (CALC)); GFR FOR AFR.AMER. > 60 ML/MIN (>=60 (CALC)); POTASSIUM 3.8 mmol/l (3.5-5.1); SGOT/AST 30 u/l (9-36); SODIUM 141 mmol/l (137-146); TOTAL PROTEIN 7.8 g/dL (6.3-8.2)
[2019-04-27] MEDS ORDERED: MEDDOSEPAK PO (22:06)
[2019-04-27] MEDS ORDERED: TESSALON PERLE100 MG PO (22:06)
[2019-04-27] MEDS ORDERED: AUGMENTIN500TAB PO (22:06)
== END 2019-04-27 22:45 | disposition home or self-care (01) | DRG 203 ==
DX: J45.909 Unspecified asthma, uncomplicated (principal); I10 Essential (primary) hypertension

== ENCOUNTER 2019-06-06 11:27 | Observation (INO) | payer BC ==
[~2019-06-06] VITALS: Ht 170.2 cm; Wt 105.0 kg
[~2019-06-06 11:27] MED LIST changes: +TESSALON PERLE100 MG PO
[2019-06-06 12:06] LABS: HEMATOCRIT 36.6 % (37.0-47.0); HEMOGLOBIN 11.4 g/dl (12.0-16.0); IMMATURE GRANULOCYTES 0.3 % (0.0-5.0); MEAN CELL VOLUME 87.4 fL CALC (80.0-100.0); MEAN CORPUSCULAR HGB 27.2 pG CALC (26.0-32.0); MEAN CORPUSCULAR HGB CONC 31.1 g/dL CAL (32.0-36.0); NEUT# 6.21 thou/uL (2.00-7.15); RED BLOOD COUNT 4.19 mill/uL (4.20-5.60); RED CELL DISTRI WIDTH 14.4 % (11.5-15.5)
[2019-06-06 12:26] LABS: ALBUMIN 4.1 g/dL (3.2-5.0); ALKALINE PHOSPHATASE 130 u/l (38-126); ANION GAP 12 (6-22 (CALC)); BUN 9 mg/dL (8-23); BUN/CREATININE RATIO 16 (12-20 (CALC)); C-REACTIVE PROTEIN 2.8 mg/dL (0-0.9); CARBON DIOXIDE 25 mmol/l (22-30); CHLORIDE 107 mmol/l (95-108); CREATININE 0.6 mg/dL (0.5-1.0); GFR > 60 ML/MIN (>=60 (CALC)); GFR FOR AFR.AMER. > 60 ML/MIN (>=60 (CALC)); SGOT/AST 28 u/l (9-36); SODIUM 140 mmol/l (137-146); TOTAL PROTEIN 7.7 g/dL (6.3-8.2)
[2019-06-06 12:34] LABS: BILIRUBIN, TOTAL 0.5 mg/dL (0.0-1.4)
[2019-06-06 14:40] VITALS: BP 133/75
[2019-06-06 20:00] VITALS: BP 138/85
[2019-06-06 23:58] VITALS: BP 145/79
[2019-06-07 04:19] VITALS: BP 145/96
[2019-06-07 08:00] VITALS: BP 151/66
[2019-06-07 08:39] LABS: CHOLESTEROL HDL RATIO 6.3 (<4.4 (CALC))
[2019-06-07 12:04] VITALS: BP 156/90
[2019-06-07] MEDS ORDERED: ZITHROMAX250 MG PO (13:16)
== END 2019-06-07 15:03 | disposition home or self-care (01) | DRG 313 ==
LOC: ED 11:27 → ED-I 12:49 → ED 13:19 → MS2 13:20 → ED-I 13:20 → MS2 13:53
PROVIDERS: Family Medicine; Nurse Practitioner Family; ADMIT Internal Medicine; ATTEND Internal Medicine
DX: R07.9 Chest pain, unspecified (principal); J02.9 Acute pharyngitis, unspecified; J34.89 Other specified disorders of nose and nasal sinuses; R06.02 Shortness of breath; I11.0 Hypertensive heart disease with heart failure; I50.9 Heart failure, unspecified; J44.9 Chronic obstructive pulmonary disease, unspecified; E78.5 Hyperlipidemia, unspecified; K21.9 Gastro-esophageal reflux disease without esophagitis; Z20.828 Contact with and (suspected) exposure to other viral communicable diseases
CPT/HCPCS: G0378

== ENCOUNTER 2020-05-15 12:30 | Emergency (ER) | payer OTHER, BC ==
[~2020-05-15] VITALS: Ht 170.2 cm; Wt 109.0 kg
[2020-05-15] MEDS ORDERED: CELEBREX100 M1 PO (14:24)
[2020-05-15 15:19] VITALS: BP 149/88
== END 2020-05-15 15:00 | disposition home or self-care (01) | DRG 605 ==
LOC: ED 12:30
DX: S90.01XA Contusion of right ankle, initial encounter (principal); M54.2 Cervicalgia; M54.9 Dorsalgia, unspecified; I11.0 Hypertensive heart disease with heart failure; I50.9 Heart failure, unspecified; E78.5 Hyperlipidemia, unspecified; K21.9 Gastro-esophageal reflux disease without esophagitis; V43.52XA Car driver injured in collision with other type car in traffic accident, initial encounter; Z87.11 Personal history of peptic ulcer disease; Z98.84 Bariatric surgery status

== ENCOUNTER 2021-08-09 07:05 | Day surgery (SDC) | payer MEDICARE ==
[~2021-08-09] VITALS: Ht 170.2 cm; Wt 104.3 kg
[~2021-08-09 07:05] MED LIST changes: +ALBUTEROL SUL0.083 % IN; +ALENDRONATE SOD70 MG PO; +CALCIUM 600+D31 TA2; +CELEBREX100 M1 PO; +ESOMEPRAZOLE MA20 MG PO; +FLONASE AL50 MCG/ACT; +GABAPENTIN300 M2 PO; +K-TAB20 MEQ PO; +LASIX 40 MG TAB40 MG PO; +LIPITOR20 M1 PO; +VITAMIN C500 MG PO; +ZINC50 M1 PO
[2021-08-09 10:07] VITALS: BP 112/65
== END 2021-08-09 09:53 | disposition home or self-care (01) ==
LOC: ENDO 07:05 → ORM 08:30 → ENDO 09:53
PROVIDERS: ATTEND Surgery
PROC: 0DJD8ZZ Inspection of Lower Intestinal Tract, Via Natural or Artificial Opening Endoscopic (ICD-10-PCS; principal; 2021-08-09)
DX: Z12.11 Encounter for screening for malignant neoplasm of colon (principal); K64.8 Other hemorrhoids; I10 Essential (primary) hypertension; I25.10 Atherosclerotic heart disease of native coronary artery without angina pectoris; E78.00 Pure hypercholesterolemia, unspecified; Z98.84 Bariatric surgery status; Z86.010 Personal history of colon polyps

== ENCOUNTER 2022-02-26 10:51 | Emergency (ER) | payer MEDICARE ==
[2022-02-26] VITALS (9 sets, daily range): BP systolic 126–171; BP diastolic 70–109
[~2022-02-26] VITALS: Ht 170.2 cm; Wt 109.0 kg
[2022-02-26 12:42] LABS: URINE BILIRUBIN - DIPSTICK NEGATIVE (NEGATIVE); URINE BLOOD DIPSTICK NEGATIVE (NEGATIVE); URINE COLOR YELLOW; URINE GLUCOSE - DIPSTICK NEGATIVE (NEGATIVE); URINE KETONE NEGATIVE (NEGATIVE); URINE LEUK ESTERASE NEGATIVE (NEGATIVE); URINE PH 7.5 (4.5-8.0); URINE PROTEIN - DIPSTICK NEGATIVE (NEG-TRACE); URINE SPECIFIC GRAVITY 1.015
[2022-02-26 12:49] LABS: URINE NITRITE - DIPSTICK NEGATIVE (Negative)
[2022-02-26] MEDS ORDERED: ULTRAM50 MG PO (13:01)
[2022-02-26] MEDS ORDERED: MEDDOSEPAK PO (13:01)
[2022-02-26] MEDS ORDERED: CYCLOBENZAPRINE10 MG PO (13:01)
== END 2022-02-26 13:44 | disposition home or self-care (01) ==
LOC: ED 10:51
PROVIDERS: Emergency Medicine
DX: M51.17 Intervertebral disc disorders with radiculopathy, lumbosacral region (principal); I11.0 Hypertensive heart disease with heart failure; I50.9 Heart failure, unspecified; E78.5 Hyperlipidemia, unspecified; K21.9 Gastro-esophageal reflux disease without esophagitis; Z98.84 Bariatric surgery status; Z87.11 Personal history of peptic ulcer disease

== ENCOUNTER 2023-03-19 09:24 | Observation (INO) | payer MEDICARE ==
[2023-03-19] VITALS (17 sets, daily range): BP systolic 103–168; BP diastolic 67–114
[~2023-03-19] VITALS: Ht 170.2 cm; Wt 106.8 kg
[~2023-03-19 09:24] MED LIST changes: +CYCLOBENZAPRINE10 MG PO; +ULTRAM50 MG PO
[2023-03-19 10:00] LABS: BASO% 0.1 % (0-3); EOS% 1.3 % (0-8); HEMATOCRIT 35.1 % (37.0-47.0); HEMOGLOBIN 11.1 g/dl (12.0-16.0); LYMPH% 32.1 % (15-41); MEAN CELL VOLUME 89.1 fL CALC (80.0-100.0); MEAN CORPUSCULAR HGB 28.2 pG CALC (26.0-32.0); MEAN CORPUSCULAR HGB CONC 31.6 g/dL CAL (32.0-36.0); MONO% 8.1 % (2-13); NEUT# 4.59 thou/uL (2.00-7.15); NEUT% 58.4 % (42-76); RED BLOOD COUNT 3.94 mill/uL (4.20-5.60); RED CELL DISTRI WIDTH 14.9 % (11.5-15.5)
[2023-03-19 10:33] LABS: ALKALINE PHOSPHATASE 92 u/l (38-126); ANION GAP 9 (6-22 (CALC)); BILIRUBIN, TOTAL 0.4 mg/dL (0.02-1.3); BUN 9 mg/dL (8-23); BUN/CREATININE RATIO 12 (12-20 (CALC)); CARBON DIOXIDE 29 mmol/l (22-30); CHLORIDE 108 mmol/l (95-108); CREATININE 0.7 mg/dL (0.5-1.0); GFR FOR AFR.AMER. > 60 ML/MIN (>=60 (CALC)); GFR OTHER RACES > 60 ML/MIN (>=60 (CALC)); POTASSIUM 4.1 mmol/l (3.5-5.1); SGOT/AST 33 u/l (9-36); SODIUM 141 mmol/l (137-146); TOTAL PROTEIN 7.2 g/dL (6.3-8.2)
[2023-03-20 00:27] VITALS: BP 140/73
[2023-03-20 04:18] VITALS: BP 118/77
[2023-03-20 05:25] LABS: BASO% 0.4 % (0-3); EOS% 2.4 % (0-8); HEMATOCRIT 35.3 % (37.0-47.0); HEMOGLOBIN 10.7 g/dl (12.0-16.0); LYMPH% 47.6 % (15-41); MEAN CELL VOLUME 90.1 fL CALC (80.0-100.0); MEAN CORPUSCULAR HGB 27.3 pG CALC (26.0-32.0); MEAN CORPUSCULAR HGB CONC 30.3 g/dL CAL (32.0-36.0); MONO% 7.7 % (2-13); NEUT# 2.22 thou/uL (2.00-7.15); NEUT% 41.9 % (42-76); RED BLOOD COUNT 3.92 mill/uL (4.20-5.60); RED CELL DISTRI WIDTH 14.8 % (11.5-15.5)
[2023-03-20 05:34] LABS: ALBUMIN 3.6 g/dL (3.2-5.0); ALKALINE PHOSPHATASE 85 u/l (38-126); ANION GAP 10 (6-22 (CALC)); BUN 10 mg/dL (8-23); BUN/CREATININE RATIO 14 (12-20 (CALC)); CALCULATED LDLCHOLESTEROL 72 mg/dL (62-129 (CALC)); CARBON DIOXIDE 28 mmol/l (22-30); CHLORIDE 105 mmol/l (95-108); CHOLESTEROL HDL RATIO 3.1 (<4.4 (CALC)); CREATININE 0.7 mg/dL (0.5-1.0); GFR FOR AFR.AMER. > 60 ML/MIN (>=60 (CALC)); GFR OTHER RACES > 60 ML/MIN (>=60 (CALC)); HDL CHOLESTEROL 44 mg/dL (39.0-59.0); MAGNESIUM 2.1 mg/dL (1.6-2.3); POTASSIUM 4.3 mmol/l (3.5-5.1); SGOT/AST 32 u/l (9-36); SODIUM 138 mmol/l (137-146); TOTAL CHOLESTEROL 137 mg/dl (0-199); TOTAL PROTEIN 6.4 g/dL (6.3-8.2); TOTAL TRIGLYCERIDES 105 mg/dl (0-149); VLDL CHOLESTROL 21 mg/dl (1-41 (CALC))
[2023-03-20 05:35] LABS: BILIRUBIN, TOTAL 0.7 mg/dL (0.02-1.3)
[2023-03-20 07:19] VITALS: BP 128/81
[2023-03-20 11:02] VITALS: BP 134/78
[2023-03-20] MEDS ORDERED: PEPCID20 MG PO (11:59)
== END 2023-03-20 13:33 | disposition home or self-care (01) ==
LOC: ED 09:24 → ED-I 11:40 → ED 12:18 → MS2 12:19
PROVIDERS: Family Medicine; Nurse Practitioner Family; ADMIT Student in an Organized Health Care Education/Training Program; ATTEND Student in an Organized Health Care Education/Training Program
DX: R07.9 Chest pain, unspecified (principal); I11.0 Hypertensive heart disease with heart failure; I50.9 Heart failure, unspecified; E78.5 Hyperlipidemia, unspecified; J45.20 Mild intermittent asthma, uncomplicated; K21.9 Gastro-esophageal reflux disease without esophagitis; M19.90 Unspecified osteoarthritis, unspecified site; Z87.11 Personal history of peptic ulcer disease; Z98.84 Bariatric surgery status; Z20.822 Contact with and (suspected) exposure to COVID-19
CPT/HCPCS: J1650

== ENCOUNTER 2023-04-27 08:55 | Emergency (ER) | payer MEDICARE ==
[~2023-04-27] VITALS: Ht 170.2 cm; Wt 104.3 kg
[~2023-04-27 08:55] MED LIST changes: +PEPCID20 MG PO
[2023-04-27 09:31] LABS: GFR FOR AFR.AMER. > 60 ML/MIN (>=60 (CALC)); GFR OTHER RACES > 60 ML/MIN (>=60 (CALC))
[2023-04-27 09:32] LABS: BASO% 0.1 % (0-3); EOS% 1.1 % (0-8); HEMOGLOBIN 12.1 g/dl (12.0-16.0); IMMATURE GRANULOCYTES 0.1 % (0.0-5.0); LYMPH% 27.2 % (15-41); MEAN CELL VOLUME 87.8 fL CALC (80.0-100.0); MEAN CORPUSCULAR HGB 27.3 pG CALC (26.0-32.0); MONO% 7.7 % (2-13); NEUT# 5.68 thou/uL (2.00-7.15); NEUT% 63.8 % (42-76); RED BLOOD COUNT 4.44 mill/uL (4.20-5.60); RED CELL DISTRI WIDTH 14.8 % (11.5-15.5)
[2023-04-27 09:58] LABS: ALBUMIN 3.6 g/dL (3.2-5.0); ALKALINE PHOSPHATASE 91 u/l (38-126); BILIRUBIN, TOTAL 0.3 mg/dL (0.02-1.3); BUN 14 mg/dL (8-23); BUN/CREATININE RATIO 20 (12-20 (CALC)); CARBON DIOXIDE 25 mmol/l (22-30); CHLORIDE 109 mmol/l (95-108); CREATININE 0.7 mg/dL (0.5-1.0); GFR FOR AFR.AMER. > 60 ML/MIN (>=60 (CALC)); GFR OTHER RACES > 60 ML/MIN (>=60 (CALC)); SGOT/AST 31 u/l (9-36); SODIUM 141 mmol/l (137-146); TOTAL PROTEIN 6.4 g/dL (6.3-8.2)
[2023-04-27 10:00] LABS: ANION GAP 10 (6-22 (CALC)); POTASSIUM 3.4 mmol/l (3.5-5.1)
[2023-04-27 12:26] VITALS: BP 135/83
== END 2023-04-27 12:51 | disposition home or self-care (01) ==
LOC: ED 08:55
PROVIDERS: Family Medicine
DX: R06.02 Shortness of breath (principal); I11.0 Hypertensive heart disease with heart failure; I50.9 Heart failure, unspecified; K44.9 Diaphragmatic hernia without obstruction or gangrene; Z86.16 Personal history of COVID-19
CPT/HCPCS: Q9967

== ENCOUNTER 2024-05-15 07:32 | Emergency (ER) | payer MEDICARE ==
[~2024-05-15] VITALS: Ht 170.2 cm; Wt 104.3 kg
[2024-05-15] VITALS (8 sets, daily range): BP systolic 119–164; BP diastolic 85–141
[~2024-05-15 07:32] MED LIST changes: +ACETAMINOPHEN325 MG PO; +FLEXERIL5 M1 PO; +FUROSEMIDE20 MG PO; +IRON325 M1 PO; +POTASSIUM CHLO20 ME2 PO
[2024-05-15] MEDS ORDERED: cefTRIAXone SODIUM 2 GM in SODIUM CHLORIDE 0.9% 100 ML IV ONE (07:50)
[2024-05-15] MEDS ORDERED: IPRATROPIUM-Albuterol 0.5MG-2.5MG/3 ML NEB ONE ×2 (07:50)
[2024-05-15] MEDS ORDERED: methylPREDNISolone SODIUM SUCC 125 MG/2 ML SDV IV ONE (07:50)
[2024-05-15] MEDS ORDERED: AZITHROMYCIN 250 MG/TAB PO ONE (07:50)
[2024-05-15 08:07] LABS: BASO% 0.3 % (0-3); EOS% 1.1 % (0-8); HEMATOCRIT 39.3 % (37.0-47.0); HEMOGLOBIN 12.3 g/dl (12.0-16.0); IMMATURE GRANULOCYTES 0.3 % (0.0-5.0); MEAN CELL VOLUME 91.4 fL CALC (80.0-100.0); MEAN CORPUSCULAR HGB 28.6 pG CALC (26.0-32.0); MEAN CORPUSCULAR HGB CONC 31.3 g/dL CAL (32.0-36.0); MONO% 9.2 % (2-13); NEUT# 1.18 thou/uL (2.00-7.15); NEUT% 33.1 % (42-76); RED BLOOD COUNT 4.3 mill/uL (4.20-5.60); RED CELL DISTRI WIDTH 15.1 % (11.5-15.5)
[2024-05-15] MEDS ORDERED: FAMOTIDINE20 M1 PO (08:08)
[2024-05-15 08:33] LABS: ALBUMIN 4.1 g/dL (3.2-5.0); CREATININE 0.7 mg/dL (0.5-1.0); POTASSIUM 3.4 mmol/l (3.5-5.1); TOTAL PROTEIN 7.1 g/dL (6.3-8.2)
[2024-05-15 08:47] LABS: BILIRUBIN, TOTAL 0.7 mg/dL (0.02-1.3)
[2024-05-15] MEDS ORDERED: DOXYCYC MONO100 M3 PO ×2 (11:29→13:52)
[2024-05-15] MEDS ORDERED: PREDNISONE50 MG PO ×2 (11:29→14:19)
[2024-05-15] MEDS ORDERED: IPRATROPIU0.5 MG/3 M IN ×2 (11:29→14:19)
== END 2024-05-15 12:22 | disposition home or self-care (01) ==
LOC: ED 07:32
PROVIDERS: Family Medicine
DX: J45.909 Unspecified asthma, uncomplicated (principal); I11.0 Hypertensive heart disease with heart failure; I50.9 Heart failure, unspecified; E78.5 Hyperlipidemia, unspecified; K21.9 Gastro-esophageal reflux disease without esophagitis; Z20.822 Contact with and (suspected) exposure to COVID-19
CPT/HCPCS: J0696; Q9967